=== PATIENT | female | born 1980 | race Caucasian/White ===

== ENCOUNTER 2017-03-24 15:18 | Outpatient (CLI) | payer MEDICAID ==
[2017-03-24 17:42] LABS: ADD UMIC NO; UR ASCORBIC ACID 40 mg/dL (NEGATIVE); UR BILIRUBIN (Dip) NEGATIVE (NEGATIVE); UR BLOOD (Dip) NEGATIVE (NEGATIVE); UR CLARITY CLEAR (CLEAR); UR COLOR YELLOW (YELLOW); UR GLUCOSE (Dip) NEGATIVE (NEGATIVE); UR KETONES (Dip) NEGATIVE (NEGATIVE); UR LEUKOCYTE ESTERASE (Dip) NEGATIVE Leu/ul (NEGATIVE); UR NITRITE (Dip) NEGATIVE (NEGATIVE); UR SPECIFIC GRAVITY (Dip) 1.016 (1.003-1.030); UR TOTAL PROTEIN (Dip) NEGATIVE (NEGATIVE); UR UROBILINOGEN (Dip) NEGATIVE (NEGATIVE)
[2017-03-24] MEDS: ACETAMINOPHEN 325 MG TAB PO (18:02)
[2017-03-24 19:05] LABS: ADD MAN DIFF? NO
[2017-03-24 19:06] LABS: WHITE BLOOD COUNT 6.7 10^3/ul (4.8-10.8)
[2017-03-24 19:06] LABS: BASOPHILS % 0.6 % (0.0-2.0); EOSINOPHILS # 0.5 10^3/ul (0.0-0.5); EOSINOPHILS % 7.4 % (0.0-7.0); HEMATOCRIT 32.9 % (37.0-47.0); LYMPHOCYTES # 2.2 10^3/ul (0.8-2.9); LYMPHOCYTES % 32.1 % (15.0-51.0); MEAN CORPUSCULAR HEMOGLOBIN 31.1 pg (29.0-33.0); MEAN CORPUSCULAR HGB CONC 33.4 g/dl (32.0-37.0); MEAN CORPUSCULAR VOLUME 92.9 fl (82.0-101.0); MEAN PLATELET VOLUME 10.4 fl (7.4-10.4); MONOCYTE # 0.4 10^3/ul (0.3-0.9); MONOCYTES % 6.1 % (0.0-11.0); NEUTROPHIL # 3.6 10^3/ul (1.6-7.5); NEUTROPHILS % 53.4 % (39.0-77.0); PLATELET COUNT 320 10^3/UL (140-415); RED BLOOD COUNT 3.54 10^6/ul (4.20-5.40); RED CELL DISTRIBUTION WIDTH 13.1 % (11.5-14.5)
== END 2017-03-24 20:09 | disposition home or self-care (01) ==
LOC: OBT 15:18 → L-D 15:19 → OBT 20:09
DX: O26.892 Other specified pregnancy related conditions, second trimester (principal); O09.522 Supervision of elderly multigravida, second trimester; Z3A.26 26 weeks gestation of pregnancy; R10.2 Pelvic and perineal pain; R51 Headache
CPT/HCPCS: 76817; 76818; 81003; 85025; 87086

== ENCOUNTER 2017-06-17 23:53 | Inpatient (IN) | payer MEDICAID ==
[2017-06-18] MEDS ORDERED: IBUPROFEN 600 MG TAB PO (01:00)
[2017-06-18] MEDS ORDERED: MISOPROSTOL 200 MCG TAB PR ×2 (01:00→05:30)
[2017-06-18] MEDS ORDERED: OXYTOCIN 30 UNITS/LR 500 ML IV ×2 (01:00→05:30)
[2017-06-18] MEDS ORDERED: METHYLERGONOVINE 0.2 MG INJ IM ×2 (01:00→05:30)
[2017-06-18] MEDS ORDERED: BUTORPHANOL 2 MG INJ IV (01:00)
[2017-06-18] MEDS ORDERED: CARBOPROST 250 MCG INJ IM ×2 (01:00→05:30)
[2017-06-18] MEDS: LACTATED RINGER'S 1,000 ML IV (01:09)
[2017-06-18 01:14] LABS: ADD MAN DIFF? NO
[2017-06-18 01:27] LABS: BASOPHIL # 0.1 10^3/ul (0.0-0.1); BASOPHILS % 0.7 % (0.0-2.0); EOSINOPHILS # 0.3 10^3/ul (0.0-0.5); EOSINOPHILS % 2.9 % (0.0-7.0); HEMATOCRIT 32.7 % (37.0-47.0); HEMOGLOBIN 10.6 g/dl (12.0-16.0); LYMPHOCYTES # 3.2 10^3/ul (0.8-2.9); LYMPHOCYTES % 29.6 % (15.0-51.0); MEAN CORPUSCULAR HGB CONC 32.4 g/dl (32.0-37.0); MEAN CORPUSCULAR VOLUME 86.3 fl (82.0-101.0); MONOCYTE # 0.6 10^3/ul (0.3-0.9); MONOCYTES % 5.3 % (0.0-11.0); NEUTROPHIL # 6.6 10^3/ul (1.6-7.5); NEUTROPHILS % 60.9 % (39.0-77.0); PLATELET COUNT 327 10^3/UL (140-415); RED BLOOD COUNT 3.79 10^6/ul (4.20-5.40); RED CELL DISTRIBUTION WIDTH 13.2 % (11.5-14.5)
[2017-06-18 01:27] LABS: WHITE BLOOD COUNT 10.9 10^3/ul (4.8-10.8)
[2017-06-18 01:47] LABS: INR 0.88; PT RATIO 0.9
[2017-06-18 02:22] LABS: HEPATITIS B SURFACE ANTIGEN NEGATIVE (NEGATIVE)
[2017-06-18] MEDS: MINERAL OIL LIGHT 10 ML VIAL TOP (04:45)
[2017-06-18] MEDS: OXYTOCIN 30 UNITS/LR 500 ML IV ×3 (04:46→23:41)
[2017-06-18] MEDS: LIDOCAINE 1% (MPF) 30 ML INJ INJ (04:47)
[2017-06-18] MEDS ORDERED: LACTATED RINGER'S 1,000 ML IV* (05:05)
[2017-06-18] MEDS ORDERED: ONDANSETRON 4 MG INJ IV (05:30)
[2017-06-18] MEDS ORDERED: ACETAMINOPHEN 325 MG TAB PO (05:30)
[2017-06-18] MEDS ORDERED: BENZOCAINE 20% 56 ML SPRAY TOP (05:30)
[2017-06-18] MEDS ORDERED: DIBUCAINE 1% 30 GM OINT PR (05:30)
[2017-06-18] MEDS ORDERED: MAGNESIUM HYDROXIDE 30ML CUP PO (05:30)
[2017-06-18] MEDS: IBUPROFEN 600 MG TAB PO (15:29)
[2017-06-18] MEDS: WITCH HAZEL/GLYCERIN PAD PR (16:37)
[2017-06-18] MEDS: LANOLIN 7 GM TUBE TOP (16:37)
[2017-06-18 18:14] LABS: RAPID PLASMA REAGIN NONREACTIVE (NR)
[2017-06-19] MEDS: SENNA/DOCUSATE NA (8.6MG/50MG) TAB PO (09:09)
[2017-06-19 11:11] LABS: ADD MAN DIFF? NO
[2017-06-19 11:14] LABS: BASOPHIL # 0.1 10^3/ul (0.0-0.1); BASOPHILS % 1.1 % (0.0-2.0); EOSINOPHILS # 0.4 10^3/ul (0.0-0.5); EOSINOPHILS % 3.7 % (0.0-7.0); HEMOGLOBIN 10.2 g/dl (12.0-16.0); LYMPHOCYTES # 2.1 10^3/ul (0.8-2.9); LYMPHOCYTES % 20.3 % (15.0-51.0); MEAN CORPUSCULAR HEMOGLOBIN 28.6 pg (29.0-33.0); MEAN CORPUSCULAR HGB CONC 32.9 g/dl (32.0-37.0); MEAN CORPUSCULAR VOLUME 86.8 fl (82.0-101.0); MEAN PLATELET VOLUME 10.1 fl (7.4-10.4); MONOCYTE # 0.6 10^3/ul (0.3-0.9); MONOCYTES % 6.1 % (0.0-11.0); NEUTROPHIL # 7.1 10^3/ul (1.6-7.5); NEUTROPHILS % 68.1 % (39.0-77.0); PLATELET COUNT 298 10^3/UL (140-415); RED BLOOD COUNT 3.57 10^6/ul (4.20-5.40); RED CELL DISTRIBUTION WIDTH 13.5 % (11.5-14.5)
[2017-06-19 11:14] LABS: WHITE BLOOD COUNT 10.4 10^3/ul (4.8-10.8)
[2017-06-19] MEDS: IBUPROFEN 600 MG TAB PO ×2 (11:38→20:54)
[2017-06-20] MEDS: IBUPROFEN 600 MG TAB PO (07:59)
[2017-06-20] MEDS: ACETAMINOPHEN 325 MG TAB PO (09:19)
== END 2017-06-20 13:45 | disposition home or self-care (01) | DRG 775 ==
LOC: OBT 23:53 → L-D 23:54 → OBT 06-18 00:30 → L-D 06-18 00:30 → PP1 06-18 14:45
PROVIDERS: Obstetrics & Gynecology
PROC: 10E0XZZ Delivery of Products of Conception, External Approach (ICD-10-PCS; principal; 2017-06-18)
PROC: 0HQ9XZZ Repair Perineum Skin, External Approach (ICD-10-PCS; 2017-06-18)
DX: O70.0 First degree perineal laceration during delivery (principal); Z3A.39 39 weeks gestation of pregnancy; Z37.0 Single live birth
CPT/HCPCS: 85025; 85610; 85730; 86592; 86850; 86900; 86901; 87340